=== PATIENT | male | born 1945 | race Caucasian/White ===

== ENCOUNTER → 2017-09-12 | Outpatient (CLI) | payer OTHER ==
[~2017-09-12] MED LIST: FE-TABS325 MG PO; FOLIC ACID 40400 MCG PO; METOPROLOL PO; VITAMIN C PO
== END ==
LOC: COL.RAD 08:00
DX: M54.5 Low back pain (principal); R31.9 Hematuria, unspecified; R10.32 Left lower quadrant pain
CPT/HCPCS: Q9967

== ENCOUNTER 2018-05-12 12:32 | Emergency (ER) | payer OTHER ==
[~2018-05-12] VITALS: Ht 180.3 cm; Wt 90.9 kg
[2018-05-12 12:35] VITALS: TEMP 98.2
[2018-05-12] MEDS ORDERED: LOPRESSOR 225 MG/TAB PO (12:49)
[2018-05-12 13:13] LABS: BASO # 0.1 (0.0-0.2); BASO % 0.5 % (0.0-2.0); EOS # 0.1 (0.0-0.7); EOS % 0.4 % (0-4.0); GRAN % 80.4 % (42.2-75.2); HEMATOCRIT 47.1 % (42.0-52.0); HEMOGLOBIN 16.5 g/dl (13.5-18.0); LYMPH # 1.5 (1.2-3.4); LYMPH % 10.9 % (20.0-51.0); MEAN CELL VOLUME 92 fl (80.0-100.0); MEAN CORPUSCULAR HEMOGLOBIN 32 pg (27.0-31.0); MEAN CORPUSCULAR HGB CONC 35 g/dl (33.0-37.0); MEAN PLATELET VOLUME 11.2 fl (7.4-10.4); MONO % 7.4 % (1.7-9.3); PLATELET COUNT 169 K/mm3 (130-400)
[2018-05-12 13:28] LABS: ALANINE AMINOTRANSFERASE 32 U/L (21-72); ALBUMIN 4.2 gm/dL (3.5-5.0); ALKALINE PHOSPHATASE 96 U/L (50-136); ANION GAP 10 mmol/L (7-16); AST,SGOT 38 U/L (15-37); BILIRUBIN,TOTAL 1.3 mg/dL (0.0-1.0); BLOOD UREA NITROGEN 17 mg/dL (9-20); C-REACTIVE PROTEIN 3.2 mg/dL (0.0-0.9); CARBON DIOXIDE 26 mmol/L (22-30); CHLORIDE 98 mmol/L (98-107); CREATININE, serum 0.87 mg/dL (0.66-1.25); GLUCOSE 94 mg/dL (74-106); LIPASE 294 U/L (23-300); POTASSIUM 4.6 mmol/L (3.4-5.0); SODIUM 135 mmol/L (137-145); TOTAL PROTEIN 7.4 gm/dL (6.4-8.2)
[2018-05-12 13:38] LABS: TROPONIN-I < 0.012 ng/mL (0.000-0.034)
[2018-05-12] MEDS ORDERED: NORCO 325 MG-51 TAB PO (15:12)
[2018-05-12] MEDS ORDERED: ZOFRAN ODT4 MG PO (15:12)
[2018-05-12 15:24] VITALS: BP 159/91; PULSE 70
== END 2018-05-12 15:44 | disposition home or self-care (01) ==
LOC: COL.ER 12:32
PROVIDERS: Nurse Practitioner
DX: K85.90 Acute pancreatitis without necrosis or infection, unspecified (principal); Z90.49 Acquired absence of other specified parts of digestive tract; Z98.890 Other specified postprocedural states
CPT/HCPCS: J2270; J2405; Q9967